=== PATIENT | male | born 1950 | race Caucasian/White ===

== ENCOUNTER 2018-01-06 15:46 | Observation (INO) ==
[2018-01-06 16:27] VITALS: BMI 31.9
--- NOTE | 2018-01-06 17:09 | History & Physical Report ---
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 morris , Dr. Garcia being treated with shiv daigle status post completion of 2 cycles of therapy of scheduled for cycles presented to oncology clinic today with complaints of 6 day history of intractable diarrhea. With concern for intractable diarrhea, not responding to treatment, hospitalist service was contacted by Nilam Arias nurse practitioner with oncology group and patient accepted for observation to medical floor. Patient examined at bedside on medical floor following direct admission. Reports feeling fatigued with loose, watery, brownish stools. No reported subjective fever, no chills, no increased sweating, no nausea, no vomiting, no chest pain, no palpitations, no blurred vision, no shortness of breath. Patient does report feeling tired with the diarrhea. Patient has been taking Imodium medication at home without significant benefit. Patient reports 6 episodes of watery stools noted through the course of today. No reported history of similar complaints in the past. Chemotherapy has been placed on hold at this moment until symptoms improve. Patient reports he also received 1 dose of prednisone medication one week ago provided by oncology. From previous lymph node dissection procedure, patient has chronic swelling in lower extremities. Review of Systems - Constitutional Constitutional: Present: fatigue, weakness - EENMT Eyes: Present: as per HPI Ears: Present: as per HPI Balance: Present: as per HPI Nose: Present: as per HPI Mouth/Throat: Present: as per HPI - Cardiovascular Cardiovascular: Absent: chest pain, palpitations Vascular: Present: pedal edema - Respiratory Respiratory: Absent: cough, dyspnea, wheezing - Gastrointestinal Gastrointestinal: Present: change in bowel habits, change in stool character, diarrhea. Absent: abdominal pain, constipation, hematochezia, melena, vomiting - Genitourinary Genitourinary: Absent: penile discharge, scrotal swelling - Musculoskeletal Musculoskeletal: Absent: arthralgias, limited range of motion, neck pain - Integumentary/Breasts Integumentary: Absent: non-healing lesions, pruritus - Neurological Neurological: Absent: abnormal gait, abnormal movements, abnormal speech - Psychiatric Psychiatric: Absent: depression, panic attacks - Endocrine Endocrine: Absent: palpitations, polyuria - Hematologic/Lymphatic Hematologic/Lymphatic: Present: as per HPI - Allergic/Immunologic Allergic/Immunologic: Present: as per HPI Past Medical History Medical History: Medical History (Last Updated 11/11/17 @ 13:48 by Harmeet Guzman MD) 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 Does not follow with a hvac technician. 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 Surgical History: * Bilateral knee replacement 02/2016 and 03/[address] Edwin Gilmore in [place], [place]. * Excision of basal cell carcinoma from back - 2010. * Colonoscopy - ~2009 in [place], [place]. Reported normal. * Lymph node excision bilateral groin area - 1989 in [place], [place]. * Excision of melanoma from back - 1988 Family History: Family History (Last Updated 11/11/17 @ 13:09 by Ja Maier) Mother , 93 Cancer of breast High blood pressure Father , 78 Heart attack High cholesterol Brother , 69 Cancer of colon Brother , 45 Cancer of lung Sister Lymphoma High blood pressure Family History: As Above - Social History Smoking status: Never smoker Substance use type: does not use Alcohol intake: never Alcohol intake frequency: does not drink Medications Home Medications Medication Instructions Recorded Confirmed Type Ativan (lorazepam) 0.5 mg tablet 0.5 mg PO Q4H PRN tab 11/10/17 01/06/18 History Flomax (tamsulosin) 0.4 mg capsule 0.4 mg PO HS 11/10/17 01/06/18 History Lipitor (atorvastatin) 40 mg tablet 40 mg PO HS 11/10/17 01/06/18 History Norvasc (amlodipine) 5 mg tablet 5 mg PO HS 11/10/17 01/06/18 History Prilosec (Omeprazole) 20 mg 20 mg PO HS 11/10/17 01/06/18 History capsule,delayed release Proscar (finasteride) 5 mg tablet 5 mg PO HS 11/10/17 01/06/18 History oxymetazoline 0.05 % nasal spray 2 spray INTRANASAL BID PRN 11/10/17 01/06/18 History aspirin 81 mg tablet,delayed 81 mg PO HS 11/11/17 01/06/18 History release Acyclovir 1 tab PO DAILY 01/06/18 01/06/18 History Fluticasone HFA [Flovent Hfa 44 1 puff AEROSOL DAILY 01/06/18 01/06/18 History mcg] Loperamide [Imodium] 2 mg PO BID 01/06/18 01/06/18 History Nystatin Oral Liq. [Mycostatin] 5 ml PO TID 01/06/18 01/06/18 History guaiFENesin [Mucinex] 1,200 mg PO Q12H 01/06/18 01/06/18 History predniSONE [Prednisone] 60 mg PO DAILY 01/06/18 01/06/18 History Allergies Allergy/AdvReac Type Severity Reaction Status Date / Time No Known Allergies Allergy Verified 11/16/17 07:10 Exam Vital Signs: Pulse Rate 82 01/06/18 16:46 Blood Pressure 140/66 H 01/06/18 16:46 Pulse Oximetry 97 01/06/18 16:46 Height/Weight/BMI: Height 1.73 m Weight 95.3 kg Body Mass Index 31.9 - Additional findings Additional findings: General: Alert, awake, oriented 3. Not in acute distress. Head: Pupils equal, round, reactive to light and accommodation. Extraocular movements intact. Neck: No elevation in JVP. No pharyngeal erythema noted. Chest: The patient does not use accessory muscles for breathing. Lungs: Breath sounds audible on auscultation bilateral lung meyer. No wheezing , no rhonchi, no crepitations, no crackles. No pleural rub. CVS: S1, S2 heard on auscultation. Normal rate and rhythm. No murmur, no S3/S4 gallops. Abdomen: Soft, nontender, no distention. Bowel sounds appreciated on auscultation. : No flank tenderness, no suprapubic distention or tenderness. Skin: No rashes, no induration, no erythema. Capillary refill less than 4 seconds. Extremities: Trace pedal edema bilateral lower extremities. No calf tenderness bilaterally. Palpable dorsalis pedis and posterior tibial pulses bilateral lower extremities. HIDE BUFFER: Strength 5/5 bilateral upper and lower extremities. Sensations intact. No slurred speech, no facial droop. No discernible focal neurological deficits. Results - Labs CBC & Chem 7: 01/06/18 17:46 01/06/18 17:46 Assessment and Plan Assessment and Plan: Assessment: Intractable Diarrhea Metastatic melanoma, currently on immunotherapy with shiv daigle status post 2 completed cycles of 4 total scheduled. Hypertension Hyperlipidemia History of coronary artery disease History of shingles with reactivation BPH GERD Anxiety Plan: IV fluids normal saline at 100 mL per hour. Stool studies performed on 01/04/2018, GI panel including C. difficile and occult blood were negative, will not be repeated at this point. Imodium 2 mg by mouth as needed for recurrent episodes of diarrhea, not to exceed 16 mg in 24 hours. CBC with differential, chem plus, lactic acid, urinalysis with culture if indicated, requested. Continue home medications Lipitor 40 mg by mouth at bedtime Continue Norvasc 5 mg by mouth daily Continue aspirin 81 mg by mouth daily Ativan 0.5 mg by mouth every 4 hours as needed for anxiety Continue home medication acyclovir Omeprazole 20 mg by mouth daily Continue finasteride 5 mg and Flomax 0.4 mg by mouth daily. DVT Prophylaxis: SCD's GI Prophylaxis: Omeprazole Resuscitation Status: Full Code - Time spent with patient Time with patient PN: 50 minutes - Physician Narrative Narrative: Date: 01/06/18 Time: 1701 Hospital Course Summary Disclaimer: The visit summary below is not to be considered part of the above Progress Note.
[2018-01-06] MEDS ORDERED: LORazepam 0.5 MG TABLET PO PRN (17:24)
[2018-01-06] MEDS ORDERED: LOPERAMIDE 2 MG CAPSULE PO PRN (17:29)
[2018-01-06] MEDS: NS 1,000 ML IV SCH (17:33)
[2018-01-06] MEDS: BUDESONIDE INH.SOLN 0.25mg/2ml NEB AEROSOL SCH (20:18)
[2018-01-06] MEDS: ACYCLOVIR 200 MG CAPSULE PO SCH (20:56)
[2018-01-06] MEDS ORDERED: ASPIRIN *EC* 81 MG TABLET PO SCH (21:00)
[2018-01-06] MEDS ORDERED: ATORVASTATIN 40 MG TABLET PO SCH (21:00)
[2018-01-06] MEDS ORDERED: OMEPRAZOLE 20 MG CAPSULE PO SCH (21:00)
[2018-01-06] MEDS ORDERED: FINASTERIDE 5 MG TABLET PO SCH (21:00)
[2018-01-06] MEDS ORDERED: TAMSULOSIN 0.4 MG CAPSULE PO SCH (21:00)
[2018-01-06] MEDS ORDERED: AMLODIPINE 5 MG TABLET PO SCH (21:00)
[2018-01-07] MEDS: NS 1,000 ML IV SCH ×2 (03:55→15:07)
[2018-01-07 07:27] VITALS: BP 149/67; PULSE 67; TEMP 97.5; O2SAT 99
[2018-01-07] MEDS: ACYCLOVIR 200 MG CAPSULE PO SCH (08:14)
[2018-01-07] MEDS ORDERED: ACYCLOVIR PO SCH (09:00)
[2018-01-07] MEDS: BUDESONIDE INH.SOLN 0.25mg/2ml NEB AEROSOL SCH (09:47)
[2018-01-07 09:52] VITALS: RESP 16
[2018-01-07] MEDS ORDERED: HEPARIN 5,000unit/ml 1ml INJECTION IV ONE (15:56)
--- NOTE | 2018-01-07 16:28 | Discharge Summary ---
Discharge Information Date of admission: 01/06/18 15:46 Anticipated date of discharge: 01/07/18 Attending Physician: Santiago Jara MD Primary care physician: Nikolas Lance MD Intractable Diarrhea, resolved Metastatic melanoma, currently on immunotherapy with opdivo, yervoy status post 2 completed cycles of 4 total scheduled. Hypertension Hyperlipidemia History of coronary artery disease History of shingles with reactivation BPH GERD Anxiety - Laboratory Labs: 01/07/18 04:16 01/07/18 04:15 Kelly showed trace protein, otherwise negative. - Microbiology GI panel performed on 01/04/2018, negative. 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 morris , Dr. Garcia being treated with shiv daigle status post completion of 2 cycles of therapy of scheduled for cycles presented to oncology clinic today with complaints of 6 day history of intractable diarrhea. With concern for intractable diarrhea, not responding to treatment, hospitalist service was contacted by Nilam Arias nurse practitioner with oncology group and patient accepted for observation to medical floor. Patient examined at bedside on medical floor following direct admission. Reports feeling fatigued with loose, watery, brownish stools. No reported subjective fever, no chills, no increased sweating, no nausea, no vomiting, no chest pain, no palpitations, no blurred vision, no shortness of breath. Patient does report feeling tired with the diarrhea. Patient has been taking Imodium medication at home without significant benefit. Patient reports 6 episodes of watery stools noted through the course of today. No reported history of similar complaints in the past. Chemotherapy has been placed on hold at this moment until symptoms improve. Patient reports he also received 1 dose of prednisone medication one week ago provided by oncology. From previous lymph node dissection procedure, patient has chronic swelling in lower extremities. Objective Vital signs: Temperature 97.5 F 01/07/18 07:27 Pulse Rate 67 01/07/18 07:27 Respiratory Rate 16 01/07/18 09:47 Blood Pressure 149/67 H 01/07/18 07:27 Pulse Oximetry 99 01/07/18 09:47 Height/Weight/BMI: Height 1.73 m Weight 95.2 kg Body Mass Index 31.9 - Additional findings Additional findings: General: Alert, awake, oriented 3. Not in acute distress. Head: Pupils equal, round, reactive to light and accommodation. Extraocular movements intact. Neck: No elevation in JVP. No pharyngeal erythema noted. Chest: The patient does not use accessory muscles for breathing. Lungs: Breath sounds audible on auscultation bilateral lung meyer. No wheezing , no rhonchi, no crepitations, no crackles. No pleural rub. CVS: S1, S2 heard on auscultation. Normal rate and rhythm. No murmur, no S3/S4 gallops. Abdomen: Soft, nontender, no distention. Bowel sounds appreciated on auscultation. : No flank tenderness, no suprapubic distention or tenderness. Extremities: No evidence of pedal edema bilateral lower extremities. No calf tenderness bilaterally. Palpable dorsalis pedis and posterior tibial pulses bilateral lower extremities. Hospital Course This is a general summary of the patient's hospital course. For more details refer to the complete medical record. Hospital course: 01/06/2018 IV fluids normal saline at 100 mL per hour. Stool studies performed on 01/04/2018, GI panel including C. difficile and occult blood were negative, will not be repeated at this point. Imodium 2 mg by mouth as needed for recurrent episodes of diarrhea, not to exceed 16 mg in 24 hours. CBC with differential, chem plus, lactic acid, urinalysis with culture if indicated, requested. Continue home medications Lipitor 40 mg by mouth at bedtime Continue Norvasc 5 mg by mouth daily Continue aspirin 81 mg by mouth daily Ativan 0.5 mg by mouth every 4 hours as needed for anxiety Continue home medication acyclovir Omeprazole 20 mg by mouth daily Continue finasteride 5 mg and Flomax 0.4 mg by mouth daily. 01/07/2018 Patient had soft, formed stools noted during hospital stay with one episode of loose watery stools noted on night of admission. Subjectively, patient states diarrhea resolved. Orthostatic Vital signs performed on admission within normal limits. Patient discharged home, advised to take Imodium medication, if needed, as prescribed by PCP/oncologist and not to exceed 16 mg in 24 hours. Resuscitation Status: Full Code Discharge Plan - Discharge Disposition Discharge Date: 01/07/18 Disposition: 01 Discharged Home, Self-Care *Condition: Stable Reason For Visit (Visit label in EMR): intractable diarrhea,fatigue - Discharge Medications *Discharge Medications: Continue predniSONE [Prednisone] 60 mg PO DAILY Nystatin Oral Liq. [Mycostatin] 5 ml PO TID guaiFENesin [Mucinex] 1,200 mg PO Q12H Loperamide [Imodium] 2 mg PO BID Fluticasone HFA [Flovent Hfa 44 mcg] 1 puff AEROSOL DAILY Acyclovir 1 tab PO DAILY Norvasc (amlodipine) 5 mg tablet 5 mg PO HS Ativan (lorazepam) 0.5 mg tablet 0.5 mg PO Q4H PRN tab PRN Reason: Anxiety Lipitor (atorvastatin) 40 mg tablet 40 mg PO HS Proscar (finasteride) 5 mg tablet 5 mg PO HS Prilosec (Omeprazole) 20 mg capsule,delayed release 20 mg PO HS Flomax (tamsulosin) 0.4 mg capsule 0.4 mg PO HS aspirin 81 mg tablet,delayed release 81 mg PO HS oxymetazoline 0.05 % nasal spray 2 spray INTRANASAL BID PRN PRN Reason: Prn Orders - Discharge Packet/Instructions *Diet: Low salt, low irritant diet. Patient advised to avoid greasy, fatty food. *Activity: As tolerated *Pain Management/Treatment: As prescribed by PCP *Wound Care: Not applicable *Expected Signs/Symptoms: Continued improvement *Notify Physician if: Recurrent diarrhea, symptoms of dizziness, blurred vision , fatigue, poor appetite, chest pain, palpitations, shortness of breath, fever greater than 101F, chills or any other concerning findings. *During Business Hours Contact: PCP or oncologist *After Business Hours Contact: Call [facility] at [phone] and ask that the on-call physician be paged *Pending Lab/Results: No Pending Lab - Referrals/Follow Up *Referrals/Follow Up: Nikolas Lance MD [Primary Care Provider] - Louie Garcia MD [Physician] - - Patient Handouts - Dismissal Complete Discharge Instructions are:: Complete Physician Narrative - Narrative Attestation Narrative: Date: 01/07/18 Time: 5838
[2018-01-08] MEDS ORDERED: IOHEXOL 300mg/ml 100ml INJECTION ONE (04:23)
== END 2018-01-07 17:00 | disposition home or self-care (01) ==
LOC: MED
PROVIDERS: ADMIT Internal Medicine; ATTEND Internal Medicine

== ENCOUNTER 2018-01-08 02:48 | Inpatient (IN) ==
[2018-01-08] MEDS ORDERED: PROCHLORPERAZINE 10 MG/2 ML INJECTION IVP ONE (02:58)
[2018-01-08] MEDS ORDERED: NS 1,000 ML IV ONE (02:59)
--- NOTE | 2018-01-08 03:06 | Emergency Department Report ---
Nausea/Vomiting/Diarrhea HPI - General Stated complaint: v/d, weakness (chemo pt) Time Seen by Provider: 01/08/18 02:51 Source: patient Mode of arrival: ambulatory Limitations: no limitations - History of Present Illness HPI Narrative: Patient presents tonight with recurrence of nausea vomiting and diarrhea as well as feelings of generalized weakness. 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 Patient sees Dr. Dey and Dr. Garcia, and in December 09 was treated with his chemotherapy of opdivo and yervoy. Patient began having diarrhea 7 days ago, was admitted to the hospital for hydration on 01/06, and was dismissed yesterday evening 01/07, in much improved condition. Within a few hours after returning home, the patient's symptoms began again, he has been unable to control his symptoms at home even using Imodium. Patient has no medications for nausea at home. On 01/04 patient had stool PCR that was completely negative - Related Data Home Medications Medication Instructions Recorded Confirmed Ativan (lorazepam) 0.5 mg tablet 0.5 mg PO Q4H PRN tab 11/10/17 01/08/18 Flomax (tamsulosin) 0.4 mg capsule 0.4 mg PO HS 11/10/17 01/08/18 Lipitor (atorvastatin) 40 mg tablet 40 mg PO HS 11/10/17 01/08/18 Norvasc (amlodipine) 5 mg tablet 5 mg PO HS 11/10/17 01/08/18 Prilosec (Omeprazole) 20 mg 20 mg PO HS 11/10/17 01/08/18 capsule,delayed release Proscar (finasteride) 5 mg tablet 5 mg PO HS 11/10/17 01/08/18 oxymetazoline 0.05 % nasal spray 2 spray INTRANASAL BID PRN 11/10/17 01/08/18 aspirin 81 mg tablet,delayed 81 mg PO HS 11/11/17 01/08/18 release Acyclovir 1 tab PO DAILY 01/06/18 01/08/18 Fluticasone HFA [Flovent Hfa 44 1 puff AEROSOL DAILY 01/06/18 01/08/18 mcg] Loperamide [Imodium] 2 mg PO BID 01/06/18 01/08/18 Nystatin Oral Liq. [Mycostatin] 5 ml PO TID 01/06/18 01/08/18 guaiFENesin [Mucinex] 1,200 mg PO Q12H 01/06/18 01/08/18 predniSONE [Prednisone] 60 mg PO DAILY 01/06/18 01/08/18 Allergies Allergy/AdvReac Type Severity Reaction Status Date / Time No Known Allergies Allergy Verified 01/08/18 03:04 Review of Systems All systems: reviewed and negative except as stated PFSH Patient Stated Medical History Hypertension Yes Myocardial Infarction Yes: 2006, no stents, no chest pain, mild MN medical magnagment Sleep Apnea No Gastroesophageal Reflux Yes Disease Hx Benign Prostatic Yes Hyperplasia Hx Kidney Stones Yes: HX Shingles Yes: 2016 Anesthesia Reactions Yes: [facility] Medical History (Last Updated 11/11/17 @ 13:48 by Harmeet Guzman MD) 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 Does not follow with a eligibility clerk. 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 Surgical History: * Bilateral knee replacement 02/2016 and 03/[address] Edwin Gilmore in [place], [place]. * Excision of basal cell carcinoma from back - 2010. * Colonoscopy - ~2009 in [place], [place]. Reported normal. * Lymph node excision bilateral groin area - 1989 in [place], [place]. * Excision of melanoma from back - 1988 Family History: Family History (Last Updated 11/11/17 @ 13:09 by Ja Maier) Mother , 93 Cancer of breast High blood pressure Father , 78 Heart attack High cholesterol Brother , 69 Cancer of colon Brother , 45 Cancer of lung Sister Lymphoma High blood pressure - Social History Smoking status: Never smoker Substance use type: does not use Alcohol intake: never Alcohol intake frequency: does not drink Household members: none Current occupational status: retired Physical Exam - Limitations Limitations: no limitations - General General appearance: alert, other (patient appears weak, but ambulates without difficulty) - Normal Exams: Head:: Normocephalic without trauma Eyes:: Pupils are PERRLA w/ EOMI, No scleral icterus, irritation, or foreign bodies noted ENMT:: No facial trauma, nasal exudates, pharyngeal erythema, or exudates are noted Neck:: Full range of motion, without adenopathy, JVD, bruits or thyromegaly Chest/Respirations:: Clear all meyer, with good airflow, and symmetry bilaterally Cardiovascular:: Regular rate and rhythm, without murmur or gallop, Pulses 2+ all extremities, capillary refill, <2 seconds all extremities Lymphatic:: No lymphadenopathy, or lymphedema noted Musculoskeletal:: No tenderness, or deformity noted, good range of motion, all extremities Integumentary:: No rashes, hives, or bruising noted, hair and nails, without abnormality Neurological:: Patient is alert, and oriented, cranial nerves, motor/sensory/ cerebellar, exams w/o gross deficits, to observation Psychiatric:: Patient exhibits, appropriate attention, emotion and affect - Abdominal Exam Abdominal exam: Present: soft, diminished bowel sounds (significantly diminished bowel sounds in the lower segments, upper segments have normal to increased bowel sounds). Absent: distention, tenderness, guarding, rebound, rigidity Course Vital Signs Temperature 98.1 F 01/08/18 02:50 Pulse Rate 100 01/08/18 02:50 Respiratory Rate 16 01/08/18 02:50 Blood Pressure 123/66 01/08/18 02:50 Pulse Oximetry 99 01/08/18 02:50 Temperature 98.1 F 01/08/18 02:50 Pulse Rate 86 01/08/18 04:48 Respiratory Rate 16 01/08/18 05:27 Blood Pressure 132/66 01/08/18 04:48 Pulse Oximetry 98 01/08/18 04:48 Nausea/Vomiting/Diarrhea - [facility] Narrative Medical decision making narrative: Patient given Compazine 10 mg and 1 L normal saline IV fluid bolus CBC - essentially unchanged CMP/L - minimal electrolyte abnormalities consistent with mild dehydration. Creatinine 1.0 Abdominal films show multiple air-fluid levels with visible small bowel loops, questionable dilation. CT abdomen is ordered, patient is given Ativan 1 mg IV for severe claustrophobic anxiety CT A/P - initial ER George support small bowel obstruction, no obvious large masses or free fluid. Awaiting official radiology read Case is discussed with Dr. Isidoro Gong, we'll admit inpatient to medical, for continued medication and fluids and follow-up CT scan when it's finally read - Lab Data Result diagrams: 01/08/18 03:19 01/08/18 03:19 Lab Results 01/08/18 01/08/18 Range/Units 03:19 03:19 WBC 11.2 H (4.5-11.0) T/MM3 RBC 4.99 (4.50-5.90) M/MM3 Hgb 14.4 D (13.5-17.5) GM/DL Hct 41.8 D (41-53) % MCV 83.8 (80-100) UM3 MCH 28.9 (26-34) UUG MCHC 34.4 (31-37) GM/DL RDW Std Deviation 44.0 (36.9-50.2) FL Plt Count 263 (130-400) T/MM3 MPV 8.8 L (9.4-12.4) UM3 Immature Gran % (Auto) 0.8 H (0.0-0.5) % Neut % (Auto) 76.3 H (33-66) % Lymph % (Auto) 10.9 L (23-45) % [place] % (Auto) 10.6 H (0-9.0) % Eos % (Auto) 1.3 (0-4) % Baso % (Auto) 0.1 (0-2) % Neut # (Auto) 8.6 H (1.8-7.7) T/MM3 Lymph # (Auto) 1.2 (1-4.8) T/MM3 [place] # (Auto) 1.2 H (0-0.8) T/MM3 Eos # (Auto) 0.2 (0-0.5) T/MM3 Baso # (Auto) 0.0 (0-0.2) T/MM3 Abs Immat Gran (auto) 0.09 H (0.00-0.03) T/MM3 Turbidity < 20 (0-20) Sodium 142 (136-146) MEQ/L Potassium 3.4 L (3.6-5) MEQ/L Chloride 109 H (98-107) MEQ/L Carbon Dioxide 21 L (22-30) MEQ/L Anion Gap 12 (5-15) meq/L BUN 26.0 H (9-20) MG/DL Creatinine 1.0 (0.8-1.5) mg/dL GFR Calculation 74 BUN/Creatinine Ratio 26 (6-26) RATIO Glucose 102 (75-110) MG/DL Calculated Osmolality 278 (261-280) MOSM/KG Calcium 9.3 (8.4-10.2) MG/DL Total Bilirubin 0.80 (0.20-1.30) MG/DL Conjugated Bilirubin 0.00 (0.00-0.30) mg/dL Unconjugated Bilirubin 0.90 (0.00-1.1) mg/dL Icterus Index < 2 (0-7) AST 20 (17-59) U/L ALT 16 (1-50) U/L Alkaline Phosphatase 89 (38-126) U/L Total Protein 6.9 (6.3-8.2) g/dL Albumin 3.9 (3.5-5.0) g/dL Globulin 3.0 (2.4-3.6) G/DL Albumin/Globulin Ratio 1.3 (1.1-2.2) RATIO Lipase 303 H (23-300) U/L Specimen Hemolysis < 15 (0-25) Disposition Clinical Impression: Small bowel obstruction Disposition: 02 To [facility] [place] Acute Care Condition: Improved Prescriptions: No Action predniSONE [Prednisone] 60 mg PO DAILY Nystatin Oral Liq. [Mycostatin] 5 ml PO TID guaiFENesin [Mucinex] 1,200 mg PO Q12H Loperamide [Imodium] 2 mg PO BID Fluticasone HFA [Flovent Hfa 44 mcg] 1 puff AEROSOL DAILY Acyclovir 1 tab PO DAILY Norvasc (amlodipine) 5 mg tablet 5 mg PO HS Ativan (lorazepam) 0.5 mg tablet 0.5 mg PO Q4H PRN tab PRN Reason: Anxiety Lipitor (atorvastatin) 40 mg tablet 40 mg PO HS Proscar (finasteride) 5 mg tablet 5 mg PO HS Prilosec (Omeprazole) 20 mg capsule,delayed release 20 mg PO HS Flomax (tamsulosin) 0.4 mg capsule 0.4 mg PO HS aspirin 81 mg tablet,delayed release 81 mg PO HS oxymetazoline 0.05 % nasal spray 2 spray INTRANASAL BID PRN PRN Reason: Prn Orders Referrals: Nikolas Lance MD [Primary Care Provider] - - Seen By: physician
[2018-01-08] MEDS: SALINE FLUSH 10ml SYRINGE IVF PRN ×2 (03:10→11:36)
[2018-01-08] MEDS ORDERED: ONDANSETRON 4 MG/2 ML INJECTION IVP PRN (05:45)
[2018-01-08] MEDS ORDERED: MORPHINE SULFATE 2mg INJECTION IVP PRN (05:45)
[2018-01-08] MEDS: NS with KCL 20 mEq 1,000 ML IV SCH ×2 (06:11→15:30)
--- NOTE | 2018-01-08 06:11 | History & Physical Report ---
History of Present Illness Date: 01/08/18 Chief complaint: abdomen pain, diarrhea, vomiting HPI: This is a 67 y/o male who is currently being treated for metastatic recurrent melanoma. The patient was recently hospitalized for nausea/vomiting/diarrhea. He was discharged yesterday afternoon. Around 7pm the patient had recurrence of his n/v/d. He presented back to the ED and ultimately had a CT of his abdomen / pelvis. Initial opinion by ED provider was that there was no transition zone. Note that the acute abdomen series prior to the CT suggested small bowel obstruction. AT this time the patient is to be admitted for management of his ongoing gi illness. I refer those reading this H and P to the recent H and P from 01/06. and the discharge summary 01/07. Review of Systems Review of systems: no headache, no fever, chills or sweats, no sore throat, no neck pain, no chest pain, occasional cough, nausea/vomiting several times today with out blood present. Mild short of breath. mild abdomen pain wiht several diarrheal stools today. No focal motor weakness. 10 point ROS otherwise negative except fo outlined above. Past Medical History Medical History: Medical History (Last Updated 11/11/17 @ 13:48 by Harmeet Guzman MD) Metastasis to lymph nodes (Chronic) Lymphedema (Chronic) GERD (gastroesophageal reflux disease) (Chronic) High cholesterol (Chronic) HTN (hypertension) (Chronic) Heart attack (Resolved) Onset Date: ~2006 Patient reports NH was unexplained and investigation revealed no significant blockage. Does not follow with a computer technologist. 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 Surgical History: * Bilateral knee replacement 02/2016 and 03/[address] Edwin Gilmore in [place], [place]. * Excision of basal cell carcinoma from back - 2010. * Colonoscopy - ~2009 in [place], [place]. Reported normal. * Lymph node excision bilateral groin area - 1989 in [place], [place]. * Excision of melanoma from back - 1988 Family History: Family History (Last Updated 11/11/17 @ 13:09 by Ja Maier) Mother , 93 Cancer of breast High blood pressure Father , 78 Heart attack High cholesterol Brother , 69 Cancer of colon Brother , 45 Cancer of lung Sister Lymphoma High blood pressure Family History: As Above - Social History Smoking status: Never smoker Medications Home Medications Medication Instructions Recorded Confirmed Type Ativan (lorazepam) 0.5 mg tablet 0.5 mg PO Q4H PRN tab 11/10/17 01/08/18 History Flomax (tamsulosin) 0.4 mg capsule 0.4 mg PO HS 11/10/17 01/08/18 History Lipitor (atorvastatin) 40 mg tablet 40 mg PO HS 11/10/17 01/08/18 History Norvasc (amlodipine) 5 mg tablet 5 mg PO HS 11/10/17 01/08/18 History Prilosec (Omeprazole) 20 mg 20 mg PO HS 11/10/17 01/08/18 History capsule,delayed release Proscar (finasteride) 5 mg tablet 5 mg PO HS 11/10/17 01/08/18 History oxymetazoline 0.05 % nasal spray 2 spray INTRANASAL BID PRN 11/10/17 01/08/18 History aspirin 81 mg tablet,delayed 81 mg PO HS 11/11/17 01/08/18 History release Acyclovir 1 tab PO DAILY 01/06/18 01/08/18 History Fluticasone HFA [Flovent Hfa 44 1 puff AEROSOL DAILY 01/06/18 01/08/18 History mcg] Loperamide [Imodium] 2 mg PO BID 01/06/18 01/08/18 History Nystatin Oral Liq. [Mycostatin] 5 ml PO TID 01/06/18 01/08/18 History guaiFENesin [Mucinex] 1,200 mg PO Q12H 01/06/18 01/08/18 History predniSONE [Prednisone] 60 mg PO DAILY 01/06/18 01/08/18 History Allergies Allergy/AdvReac Type Severity Reaction Status Date / Time No Known Allergies Allergy Verified 01/08/18 03:04 Exam Vital Signs: Temperature 97.9 F 01/08/18 05:47 Pulse Rate 98 01/08/18 05:55 Respiratory Rate 18 01/08/18 05:55 Blood Pressure 122/65 01/08/18 05:47 Pulse Oximetry 96 01/08/18 05:55 Telemetry Rhythm: Sinus Rhythm Height/Weight/BMI: Height 1.73 m Weight 95.4 kg Body Mass Index 31.9 - Constitutional Present: mild distress, average body habitus, cooperative - Routine HEENT Exam Head: Present: normocephalic, atraumatic Eye: Present: EOMI, conjunctivae pink. Absent: conjunctival icterus ENT: Present: mucous membranes dry - Routine Neck Exam Present: supple, full ROM - Routine Respiratory Exam Present: CTA bilaterally - Routine Cardiovascular Exam Present: RRR, no murmur (mild obese, upper quadrants can appreciate bowel souns. mild tender to palpation, non surgical. ) - Routine Extremities Exam Present: edema - Routine Back/Spine/Pelvis Exam Back/Spine: Present: full ROM - Routine Skin Exam Present: intact, dry - Routine Neurological Exam Present: alert, normal reflexes, moving all extremities, normal tone, vision grossly intact, hearing grossly intact, normal speech. Absent: altered mental status - Routine Psychiatric Exam Present: normal thought process Results - Labs CBC & Chem 7: 01/08/18 03:19 01/08/18 03:19 Labs: reviewed and will be discussed below AAS with air fluid levels, concerning or sbo CT abdomen and pelvis with offical report pending but no obvious transition zone Assessment and Plan Assessment and Plan: 1. ileus acute POA: official CT results pending . AAS suggest possible SBO. NPO, ice chips, iv pain meds prn. await official result. obviously there is risk of mechanical obstruction. surgical cx not indicated yet 2. metastatic melanoma acute POA: per oncology, ongoing therapy. 3. HTN chronic POA: NPO currently, monitro blood pressure, prn antihypertensive meds as indiated. IV 4. Slightly elevated lipase acute POA: consider pancreatitis. Possible side effect of chemo. repeat lipse in the am. npo for now. 5. lyphedema chronic POA: 2/2 to lymph node ressection. 6. DVT ppx: SCD, lovenox DVT Prophylaxis: SCD's, Lovenox GI Prophylaxis: Protonix Resuscitation Status: Full Code - Time spent with patient Time with patient PN: 30 minutes - Physician Narrative Physician: Santiago Jara Narrative: Date: 01/08/18 Time: 605 Dr. Gong's note reviewed. Mr. Billingsley interviewed and examined at bedside. CC: Abdominal pain, intractable nausea, vomiting. HPI: A pleasant 67-year-old male patient with history of metastatic melanoma recently observed in the hospital for intractable diarrhea, GI panel and stool occult blood were negative on 01/04/2018, patient treated with Imodium medication. Returned to emergency room with abdominal pain, nausea, vomiting. Acute abdominal series performed in the emergency room concerning for obstruction. Thereafter, CT scan of abdomen and pelvis performed, on reviewing films I did not appreciate a transition point however official report awaited. At the time of examination at bedside, patient had 1 episode of loose watery stools and subjectively, reports abdominal pain and nausea has improved. PH/SH/FH: agree with that recorded above ROS: 10 point review EXAM: General: Alert, awake, oriented x 3. Not in acute distress. Head: Pupils equal, round, reactive to light and accommodation. Extraocular movements intact. Neck: No elevation in JVP. No pharyngeal erythema noted. Chest: Right-sided chest wall port in place. The patient does not use accessory muscles for breathing. Lungs: Breath sounds audible on auscultation bilateral lung meyer. No wheezing , no rhonchi, no crepitations, no crackles. No pleural rub. CVS: S1, S2 heard on auscultation. Normal rate and rhythm. No murmur, no S3/S4 gallops. Abdomen: Soft, positive distention, nontender to palpation. Bowel sounds appreciated on auscultation. : No flank tenderness, no suprapubic distention or tenderness. Skin: No rashes, no induration, no erythema. Capillary refill less than 4 seconds. Extremities: 1+ pedal edema bilateral lower extremities. No calf tenderness bilaterally. Palpable dorsalis pedis and posterior tibial pulses bilateral lower extremities. DATA: WBC count 11.2, serum potassium 3.4, BU and 26, serum creatinine 1.0. Awaiting report of CT scan of abdomen and pelvis. A/P: Patient admitted with clinical picture suggestive of ileus, likely secondary to Imodium medication which patient has been on for the past few days. Imodium medication will be held. Official CT report awaited and in the meantime patient will be remain nothing by mouth except for ice chips. If needed , Gen. surgery will be consulted. Hospital Course Summary Disclaimer: The visit summary below is not to be considered part of the above Progress Note.
[2018-01-08] MEDS: ENOXAPARIN 40 MG/0.4 ML INJECTION SQ SCH (09:36)
--- NOTE | 2018-01-08 10:03 | CT Scan Report ---
Indication: SBO with metastatic melanoma PROCEDURE: CT abdomen pelvis w con: Encounter: Initial Comparison: None Technique: Axial CT images were performed through the abdomen and pelvis after the administration of intravenous contrast. Coronal and sagittal two-dimensional reformats. Automated Exposure Control and Iterative Reconstruction dose reducing techniques were utilized. Contrast: Omnipaque 300 94 mL Findings: The lung bases show a 1.2 cm nodule in the lingula and a subpleural 1.3 cm nodule in the left lower lobe. There is also a mildly irregular cervical subcentimeter nodule in the right lower lobe. The liver appears normal. The gallbladder is normal. The spleen shows a tiny low-attenuation focus, too small to characterize. There is inflammatory stranding surrounding the pancreatic head and second and third portions of the duodenum with enlarged peripancreatic and mesenteric nodes. The adrenal glands are normal. Right renal cyst. Kidneys are otherwise normal. Central mesenteric edema with trace fluid. Bladder is normal. No evidence of a bowel obstruction. Fluid throughout the small and large bowel. The appendix is normal. No abnormally dilated small bowel appreciated. No evidence of bowel obstruction. Bone windows show osseous metastases, better seen on the prior pelvic MRI. These are predominantly lytic. No acute pathologic fracture appreciated. Significant soft tissue induration overlying the base of the anus and infrapubic soft tissues. Impression: 1. Inflammation around the pancreas and proximal duodenum suggesting duodenitis or pancreatitis. Ulcer disease cannot be excluded. No evidence of perforation. 2. No evidence of small bowel obstruction. 3. Metastatic disease with pulmonary and osseous metastases. 4. Probable gastroenteritis 5. Pubic area soft tissue induration possibly representing cellulitis. There is a preliminary report by [employer]. .
--- NOTE | 2018-01-08 10:04 | XRay Report ---
Indication: vomiting, diarrhea, diminished bowel sounds PROCEDURE: PA view of the chest with supine and upright AP views of the abdomen Encounter: Initial Comparison: CT abdomen and pelvis from the same date FINDINGS: The lungs are clear. There is no abnormal airspace opacity, pleural effusion or pneumothorax identified. The heart size, pulmonary vasculature and mediastinum are within normal limits. There is no free air on the upright view. The bowel gas pattern is nonobstructive with scattered small bowel air-fluid levels. No abnormally dilated small or large bowel appreciated. Lytic osseous metastatic disease is noted in the pelvis, particularly the left iliac crest. IMPRESSION: 1. No acute cardiopulmonary abnormality. 2. Probable gastroenteritis. .
[2018-01-08] MEDS: PANTOPRAZOLE 40 MG INJECTION IVP SCH (11:36)
[2018-01-08] MEDS ORDERED: PredniSONE 20 MG TABLET PO SCH (17:45)
[2018-01-09] MEDS: NS with KCL 20 mEq 1,000 ML IV SCH ×3 (02:01→22:27)
[2018-01-09] MEDS ORDERED: PANTOPRAZOLE 40 MG INJECTION IVP SCH (07:30)
[2018-01-09] MEDS: PredniSONE 20 MG TABLET PO SCH (09:15)
[2018-01-09] MEDS: PANTOPRAZOLE 40 MG INJECTION IVP SCH (09:15)
[2018-01-09] MEDS: ENOXAPARIN 40 MG/0.4 ML INJECTION SQ SCH (09:16)
--- NOTE | 2018-01-09 10:39 | Consult Note ---
<Nilam Arias - Last Filed: 01/09/18 15:58> Oncology HPI - Data of Consult Patient: known to practice within the last 3 years Consult date: 01/09/18 Requesting Physician: Santiago Jara MD Primary Care Provider: Nikolas Lance MD - Consult Narrative Reason for consult: metastatic melanoma History of present illness: 67-year-old male patient of Dr. Dey with metastatic melanoma with recent progressive disease with extensive metastasis is currently receiving immunotherapy with OpDivo/Yervoy, last received on 12/09/17. 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 Per patient, initially started with 5-6 liquid stools each day. Seen in [facility] by Dr. Dey; received SoluMedrol 120mg on 01/05/18, then started prednisone 60 mg daily, took first dose January 06. Initially, reports less diarrhea for one day, then diarrhea recurred, came to the office TuesdayJanuary 07 with persistent diarrhea, fatigue, nausea and mild abdominal pain, unrelieved with BRATY diet/clear liquids and use of Imodium. Patient was a direct admit to [facility] Tuesday afternoon; symptoms improved with hydration; states no further diarrhea Tuesday; went home late afternoon. States late Tuesday evening, 11:30 PM awoke; had single episode of large liquid stool and vomited 1 time. Went back to bed; vomiting and diarrhea occurred again a couple hours later and he returned to [facility]; admitted for supportive care, further workup and close monitoring. At time of intake, alone in room, sitting in chair. Has been tolerating clear liquids well. States today had 6-7 watery stools; states " I feel the time frame is lengthening between episodes of the diarrhea." Denies further nausea, vomiting, or abdominal pain. Denies headaches, no fever or chills, no new aches or pains. History of Present Illness: 1988; Melanoma removed from back. Underwent bilateral inguinal lymph node dissection followed by adjuvant radiation therapy and interferon therapy in the clinical trial at the [facility] 10/19/2017; right calf shave biopsy showed basal cell carcinoma 10/25/2017; right axillary lymph node biopsy; metastatic malignant melanoma 11/18/2017: cycle 1 OpDivo 108 mg/Yervoy 323 mg Review of Systems - Constitutional Constitutional: Present: anorexia, fatigue, weight loss - EENT Mouth/Throat: Present: sores - Cardiovascular Cardiovascular: Absent: chest pain, dyspnea on exertion - Respiratory Respiratory: Absent: cough, dyspnea on exertion - Gastrointestinal Gastrointestinal: Present: abdominal pain, diarrhea, nausea, vomiting - Genitourinary Genitourinary: Absent: dysuria, hematuria - Musculoskeletal Musculoskeletal: Present: muscle weakness - Integumentary/Breasts Integumentary: Present: rash (shingles rash Left upper abdomen/states unchanged) - Neurological Neurological: Present: other (lightheaded at times). 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 Does not follow with a judge clerk. 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 Surgical History: * Bilateral knee replacement 02/2016 and 03/[address] Edwin Gilmore in [place], [place]. * Excision of basal cell carcinoma from back - 2010. * Colonoscopy - ~2009 in [place], [place]. Reported normal. * Lymph node excision bilateral groin area - 1989 in [place], [place]. * Excision of melanoma from back - 1988 Family History: Family History (Last Updated 11/11/17 @ 13:09 by Ja Maier) Mother , 93 Cancer of breast High blood pressure Father , 78 Heart attack High cholesterol Brother , 69 Cancer of colon Brother , 45 Cancer of lung Sister Lymphoma High blood pressure - Social History Smoking status: Never smoker Substance use type: does not use Alcohol intake: never Alcohol intake frequency: does not drink Household members: none Current occupational status: retired Medications Home Medications Medication Instructions Recorded Confirmed Type Ativan (lorazepam) 0.5 mg tablet 0.5 mg PO Q4H PRN tab 11/10/17 01/08/18 History Flomax (tamsulosin) 0.4 mg capsule 0.4 mg PO HS 11/10/17 01/08/18 History Lipitor (atorvastatin) 40 mg tablet 40 mg PO HS 11/10/17 01/08/18 History Norvasc (amlodipine) 5 mg tablet 5 mg PO HS 11/10/17 01/08/18 History Prilosec (Omeprazole) 20 mg 20 mg PO HS 11/10/17 01/08/18 History capsule,delayed release Proscar (finasteride) 5 mg tablet 5 mg PO HS 11/10/17 01/08/18 History oxymetazoline 0.05 % nasal spray 2 spray INTRANASAL BID PRN 11/10/17 01/08/18 History aspirin 81 mg tablet,delayed 81 mg PO HS 11/11/17 01/08/18 History release Acyclovir 1 tab PO DAILY 01/06/18 01/08/18 History Fluticasone HFA [Flovent Hfa 44 1 puff AEROSOL DAILY 01/06/18 01/08/18 History mcg] Loperamide [Imodium] 2 mg PO BID 01/06/18 01/08/18 History Nystatin Oral Liq. [Mycostatin] 5 ml PO TID 01/06/18 01/08/18 History guaiFENesin [Mucinex] 1,200 mg PO Q12H 01/06/18 01/08/18 History predniSONE [Prednisone] 60 mg PO DAILY 01/06/18 01/08/18 History Allergies Allergy/AdvReac Type Severity Reaction Status Date / Time No Known Allergies Allergy Verified 01/08/18 03:04 Exam Vital signs: Temperature 96.1 F L 01/09/18 07:58 Pulse Rate 75 01/09/18 07:58 Respiratory Rate 14 01/09/18 03:36 Blood Pressure 129/61 01/09/18 07:58 Pulse Oximetry 96 01/09/18 07:58 - Constitutional no acute distress, well nourished, well developed, cooperative - Routine HEENT Exam Head: Present: normocephalic Eye: Present: EOMI ENT: Present: mucous membranes moist - Routine Neck Exam Present: supple - Routine Respiratory Exam Present: decreased breath sounds. Absent: wheezes, crackles - Routine Cardiovascular Exam Present: RRR - Routine Abdominal Exam Present: soft, normoactive bowel sounds, non distended, non tender - Routine Extremities Exam Present: no edema, full ROM - Routine Skin Exam Present: intact, dry, pallor. Absent: rash - Routine Neurological Exam Present: alert, oriented X3, moving all extremities - Routine Psychiatric Exam Present: normal affect, normal thought process, cooperative Oncology Results - Labs CBC & Chem 7: 01/09/18 04:17 01/09/18 04:17 Labs: Short CBC 01/09/18 Range/Units 04:17 WBC 4.6 D (4.5-11.0) T/MM3 Hgb 12.1 L D (13.5-17.5) GM/DL Hct 35.4 L D (41-53) % Plt Count 198 (130-400) T/MM3 BMP 01/09/18 04:17 Sodium 141 Potassium 3.8 Chloride 112 H Carbon Dioxide 20 L BUN 18.0 Creatinine 0.9 Glucose 120 H Calcium 8.4 D - Impressions Date of Exam: 01/08/18 Ordering Provider: Manoj Kemp MD Type of Exam(s): XR acute abdomen series Reason for Exam(s): vomiting, diarrhea, diminished bowel sounds Indication: vomiting, diarrhea, diminished bowel sounds PROCEDURE: PA view of the chest with supine and upright AP views of the abdomen Encounter: Initial Comparison: CT abdomen and pelvis from the same date FINDINGS: The lungs are clear. There is no abnormal airspace opacity, pleural effusion or pneumothorax identified. The heart size, pulmonary vasculature and mediastinum are within normal limits. There is no free air on the upright view. The bowel gas pattern is nonobstructive with scattered small bowel air-fluid levels. No abnormally dilated small or large bowel appreciated. Lytic osseous metastatic disease is noted in the pelvis, particularly the left iliac crest. IMPRESSION: 1. No acute cardiopulmonary abnormality. 2. Probable gastroenteritis. . Assessment and Plan Assessment and Plan: 1. Recurrent metastatic melanoma with extensive metastasis to musculoskeletal system, lungs, lymph nodes. Current treatment OpDivo/Yervoy, received cycle 2 on 12/09/17. Now with immunotherapy induced colitis. 2. Reactivation of shingles, left upper abdomen 3. Comorbidities of coronary artery disease, hypertension, hyperlipidemia, GERD Plan Continue with supportive care, prednisone 80 mg p.o. daily, and close follow- up. Dr. Jara has consultated surgeon for possible EGD. Has no questions at this time. 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 Does not follow with a judge clerk. 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 Family History: Family History (Last Updated 11/11/17 @ 13:09 by Ja Maier) Mother , 93 Cancer of breast High blood pressure Father , 78 Heart attack High cholesterol Brother , 69 Cancer of colon Brother , 45 Cancer of lung Sister Lymphoma High blood pressure Exam Vital signs: Temperature 97.3 F 01/09/18 16:00 Pulse Rate 68 01/09/18 16:00 Respiratory Rate 12 01/09/18 16:00 Blood Pressure 128/64 01/09/18 16:00 Pulse Oximetry 97 01/09/18 16:00 Oncology Results - Labs CBC & Chem 7: 01/09/18 04:17 01/09/18 04:17 Labs: Short CBC 01/09/18 Range/Units 04:17 WBC 4.6 D (4.5-11.0) T/MM3 Hgb 12.1 L D (13.5-17.5) GM/DL Hct 35.4 L D (41-53) % Plt Count 198 (130-400) T/MM3 BMP 01/09/18 04:17 Sodium 141 Potassium 3.8 Chloride 112 H Carbon Dioxide 20 L BUN 18.0 Creatinine 0.9 Glucose 120 H Calcium 8.4 D - Impressions CT abd and Pelvis Impression: 1. Inflammation around the pancreas and proximal duodenum suggesting duodenitis or pancreatitis. Ulcer disease cannot be excluded. No evidence of perforation. 2. No evidence of small bowel obstruction. 3. Metastatic disease with pulmonary and osseous metastases. 4. Probable gastroenteritis 5. Pubic area soft tissue induration possibly representing cellulitis. Assessment and Plan Assessment and Plan: Metastatic melanoma extensive currently on immunomodulation therapy with Opdivo Yervoy status post 2 cycles with diarrhea that can greater than one week ago worsened between Tuesday and Tuesday of last week he describes episodes that happen every 2 hours. He is currently on 80 mg prednisone daily. He feels that he is improving. Stools are becoming less watery. Stool today was still very watery. Cultures have been negative Stool pathogens identification last week was negative. Would recommend continuing present care, consider use of IV steroids, consider colonoscopy. Would also consider use of Remicade as outlined below. Supportive care. DIARRHEA/COLITIS Diarrhea is a common clinical complaint in patients undergoing treatment with checkpoint-blocking antibodies. Careful attention to the diagnosis and treatment of the earliest symptoms associated with gastrointestinal toxicity can decrease the risk of more severe toxicity. Manifestations Diarrhea/colitis most commonly presents approximately six weeks into treatment, which is later than dermatologic toxicity (figure 1A-B) [ 41]. The differential diagnosis of patients with diarrhea on treatment with a checkpoint inhibitor includes infections with Clostridium difficile or other bacterial/viral pathogens. Diarrhea (increase in stool frequency) is related to but clinically distinct from colitis (abdominal pain, radiographic or endoscopic findings of colonic inflammation). The incidence of diarrhea is much higher in patients receiving cytotoxic T- lymphocyte-associated antigen 4 (CTLA-4)-blocking antibodies compared with inhibition of programmed cell receptor 1 (PD-1). -Diarrhea of any grade was reported in approximately 30 percent of patients treated with ipilimumab for melanoma, but severe (grade 3/4) diarrhea occurred in less than 10 percent of cases [32]. The incidence of diarrhea appears to be dose-dependent. In a phase II dose-finding study, the rate of severe diarrhea was higher at the 10 mg/kg dose than with 3 mg/kg (10 versus 1 percent) [42]. In clinical trials of ipilimumab for melanoma, significant colitis was reported in approximately 5 percent of patients [32,42]. Endoscopic findings have revealed mucosal edema with biopsies demonstrating neutrophilic, lymphocytic, or mixed neutrophilic-lymphocytic infiltrates (picture 2) [43,44]. -Diarrhea/colitis appears to be less frequent with PD-1 blockade than with CTLA- 4 blockade, with grade 3/4 immune-mediated colitis seen in approximately 1 to 2 percent of cases [39,45,46]. Patients who had significant diarrhea/colitis during CTLA-4 blockade have subsequently been treated with PD-1 blockade using nivolumab without developing diarrhea/colitis [47]. However, additional clinical experience is needed to clarify the safety of PD-1 blockade in patients who had significant diarrhea/ colitis from prior treatment with CTLA-4 blockade. Management Patients being treated with a checkpoint inhibitor should be counseled on the importance of maintaining oral hydration if diarrhea develops. If symptoms persist for more than three days or increase and no infectious causes are identified, prompt assessment and use of oral or intravenous corticosteroids are required. -Mild (grade 1) symptoms (fewer than four stools per day over baseline) can be managed symptomatically. Some clinicians feel that the [employer] colitis diet and anti-motility agents (loperamide or oral diphenoxylate atropine sulfate) can be helpful for mild symptoms. Budesonide may be helpful in the early treatment of mild noninfectious diarrhea symptoms that persist but do not escalate after two to three days of dietary modification and anti-motility agents. -Colonoscopy may be helpful if grade 2 symptoms (increase of four to six stools per day over baseline) or greater occur or in situations where the diagnosis is unclear. Treatment should be initiated if colitis is observed. -For patients with severe or life-threatening enterocolitis (grade 3/4, increase of seven or more stools per day over baseline or other complications), treatment with ipilimumab should be permanently discontinued. High doses of corticosteroids should be given. -If patients do not improve with intravenous corticosteroids after approximately three days on IV steroids, infliximab at a dose of 5 mg/kg once every two weeks is typically recommended [48-50]. The dose and schedule of infliximab in this setting is based upon experience treating patients with inflammatory bowel disease [51]. In cases refractory to infliximab, mycophenolate may be needed. (See "Overview of tumor necrosis factor-alpha inhibitors for Crohn disease in adults".) -In very rare cases, colitis can result in bowel perforation, potentially requiring colostomy. Prophylactic treatment with the matrix-release corticosteroid, budesonide is not recommended for the prevention of diarrhea/colitis. This approach was studied as a way to reduce the incidence and/or severity of diarrhea in a double -blind, placebo-controlled phase II study [52]. The rates of diarrhea were similar in both study arms.
--- NOTE | 2018-01-09 12:23 | Progress Note ---
- Date 01/09/18 Subjective: Mr. Billingsley was sitting in his bedside chair, watching television. He states that his diarrhea is still present but slowing down. It's very watery but he denies seeing any blood. He denies epigastric pain or reflux. He denies n/v. He feels weak overall but denies dizziness. He has not felt short of breath or had any cardiac symptoms. He thinks that his leg swelling is improving. Objective Vital signs: Temperature 96.8 F 01/09/18 12:00 Pulse Rate 65 01/09/18 12:00 Respiratory Rate 14 01/09/18 12:00 Blood Pressure 132/66 01/09/18 12:00 Pulse Oximetry 98 01/09/18 12:00 Height/Weight/BMI: Height 1.73 m Weight 95.4 kg Body Mass Index 31.9 - Constitutional Present: no acute distress, well nourished, well developed - Routine HEENT Exam Head: Present: normocephalic Eye: Present: PERRL. Absent: conjunctival icterus, scleral injection ENT: Present: mucous membranes moist - Routine Respiratory Exam Present: CTA bilaterally - Routine Cardiovascular Exam Present: RRR, S1, S2 - Routine Abdominal Exam Present: soft, non distended, non tender. Absent: normoactive bowel sounds ( hypoactive) - Routine Extremities Exam Present: edema (1-2+ BLE). Absent: calf tenderness - Routine Musculoskeletal Exam Musculoskeletal: Present: moving extremities well - Routine Skin Exam Present: intact, dry, warm - Routine Neurological Exam Present: alert, oriented X3, CN II-XII intact, moving all extremities, vision grossly intact, hearing grossly intact, normal speech. 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 Hypertension Hyperlipidemia History of coronary artery disease History of shingles with reactivation BPH GERD Anxiety CT abd/pelvis report: 1. Inflammation around the pancreas and proximal duodenum suggesting duodenitis or pancreatitis. Ulcer disease cannot be excluded. No evidence of perforation. 2. No evidence of small bowel obstruction. 3. Metastatic disease with pulmonary and osseous metastases. 4. Probable gastroenteritis 5. Pubic area soft tissue induration possibly representing cellulitis. Plan Continue high-dose steroids per Dr. Dey, prednisone 80 mg daily. Continue clear liquid diet, IVF. Consult Dr. Guzman. WBC down to 4.6, though would expect it to increase since starting prednisone. Hgb down to 12.1 - nursing staff noticing blood-tinge color with stool. Monitor. DVT Prophylaxis: other (compression stockings) GI Prophylaxis: Protonix Resuscitation Status: Full Code - Physician Narrative Physician: Santiago Jara Narrative: Date: 01/09/18 Time: 1218 I have independently interviewed and examined patient. Patient chart reviewed. Case discussed with my MEAT CUTTER APPRENTICE. Care plan developed with my supervision, agree with above. Patient resting in bedside chair at the time of interview. He reports continued diarrhea although frequency and amount has improved when compared to earlier prior to admission. No reported nausea or vomiting. No reported abdominal discomfort. Case discussed with Ms. Nilam WEINSTEIN with Dr. Garcia and also with general surgeon, Dr. Bailey. Consult placed for general surgery to evaluate patient for EGD to rule out peptic ulcer disease in the context of duodenitis, pancreatitis. Physical exam: AAO x 3, NAD PERRLA, EOMI S1 and S2 heard on auscultation, no murmurs Lungs clear to auscultation bilaterally, no wheezing, no crackles Abdomen soft, nontender, positive bowel sounds No edema bilateral lower extremities. Assessment: Concern for immune mediated gastroenteritis from immunotherapy agents. pancreatitis/duodenitis. Leukocytosis, resolved. Ileus, resolving. Metastatic melanoma, following with oncology. Hyperlipidemia, history of coronary artery disease, hypertension, history of shingles, BPH, GERD, anxiety. Plan: Gen. surgery consulted for upper endoscopy. Continue high-dose prednisone 80 mg daily as recommended by Dr. Dey. Oncology will also evaluate patient at bedside. We will continue clear liquid diet for now. Hospital Course Summary Disclaimer: The visit summary below is not to be considered part of the above Progress Note. Hospital Course: 01/08/18 1. ileus acute POA: official CT results pending . AAS suggest possible SBO. NPO, ice chips, iv pain meds prn. await official result. obviously there is risk of mechanical obstruction. surgical cx not indicated yet 2. metastatic melanoma acute POA: per oncology, ongoing therapy. 3. HTN chronic POA: NPO currently, monitro blood pressure, prn antihypertensive meds as indiated. IV 4. Slightly elevated lipase acute POA: consider pancreatitis. Possible side effect of chemo. repeat lipse in the am. npo for now. 5. lyphedema chronic POA: / to lymph node ressection. 6. DVT ppx: SCD, lovenox Patient admitted with clinical picture suggestive of ileus, likely secondary to Imodium medication which patient has been on for the past few days. Imodium medication will be held. Official CT report awaited and in the meantime patient will be remain nothing by mouth except for ice chips. If needed, Gen. surgery will be consulted. Case discussed with patient's oncologist, Dr. Dey over the phone, who verbalized that patient has diagnosis of immune mediated gastroenteritis from immunotherapy medication opdivo/yervoy being provided for metastatic melanoma and recommendation to treat patient with high-dose steroids starting with prednisone 80 mg by mouth daily. 01/09/18 Continue high-dose steroids per Dr. Dey, prednisone 80 mg daily. Continue clear liquid diet, IVF. Consult Dr. Guzman. WBC down to 4.6, though would expect it to increase since starting prednisone. Hgb down to 12.1 - nursing staff noticing blood-tinge color with stool. Monitor.
[2018-01-09] MEDS ORDERED: INHALER ASSIST DEVICE (Optichamber) MC ONE (12:55)
--- NOTE | 2018-01-10 07:56 | General Surgery Consult Note ---
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 Does not follow with a zipper setter. 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 Surgical History: * Right IJ PowerPort placement - 11/16/[address] Guzman [place] [facility] * Bilateral knee replacement 02/2016 and 03/[address] Edwin Gilmore in [place], [place]. * Excision of basal cell carcinoma from back - 2010. * Colonoscopy - ~2009 in [place], [place]. Reported normal. * Lymph node excision bilateral groin area - 1989 in [place], [place]. * Excision of melanoma from back - 1988 Family History: Family History (Last Updated 11/11/17 @ 13:09 by Ja Maier) Mother , 93 Cancer of breast High blood pressure Father , 78 Heart attack High cholesterol Brother , 69 Cancer of colon Brother , 45 Cancer of lung Sister Lymphoma High blood pressure - Social History Smoking status: Never smoker Substance use type: does not use Alcohol intake: never Alcohol intake frequency: does not drink Household members: none Current occupational status: retired Social history: . Medications Home Medications Medication Instructions Recorded Confirmed Type Ativan (lorazepam) 0.5 mg tablet 0.5 mg PO Q4H PRN tab 11/10/17 01/08/18 History Flomax (tamsulosin) 0.4 mg capsule 0.4 mg PO HS 11/10/17 01/08/18 History Lipitor (atorvastatin) 40 mg tablet 40 mg PO HS 11/10/17 01/08/18 History Norvasc (amlodipine) 5 mg tablet 5 mg PO HS 11/10/17 01/08/18 History Prilosec (Omeprazole) 20 mg 20 mg PO HS 11/10/17 01/08/18 History capsule,delayed release Proscar (finasteride) 5 mg tablet 5 mg PO HS 11/10/17 01/08/18 History oxymetazoline 0.05 % nasal spray 2 spray INTRANASAL BID PRN 11/10/17 01/08/18 History aspirin 81 mg tablet,delayed 81 mg PO HS 11/11/17 01/08/18 History release Acyclovir 1 tab PO DAILY 01/06/18 01/08/18 History Fluticasone HFA [Flovent Hfa 44 1 puff AEROSOL DAILY 01/06/18 01/08/18 History mcg] Loperamide [Imodium] 2 mg PO BID 01/06/18 01/08/18 History Nystatin Oral Liq. [Mycostatin] 5 ml PO TID 01/06/18 01/08/18 History guaiFENesin [Mucinex] 1,200 mg PO Q12H 01/06/18 01/08/18 History predniSONE [Prednisone] 60 mg PO DAILY 01/06/18 01/08/18 History Allergies Allergy/AdvReac Type Severity Reaction Status Date / Time No Known Allergies Allergy Verified 01/08/18 03:04 Review of Systems 10-point ROS: negative except for HPI - General General: Present: other (fatigue) - Musculoskeletal Musculoskeletal: Present: back pain (lower (mild)) - Neurological Neurological: Present: other (slight LENTZ) - Psychiatric Psychiatric: Present: anxiety - Vital Signs Last Vital Signs Temp 95.9 F L 01/10/18 07:19 Pulse 69 01/10/18 07:19 Resp 18 01/10/18 07:19 BP 121/67 01/10/18 07:19 Pulse Ox 100 01/10/18 07:19 - Laboratory Result Diagrams: 01/09/18 04:17 01/10/18 03:38
[2018-01-10] MEDS: PANTOPRAZOLE 40 MG INJECTION IVP SCH (09:17)
[2018-01-10] MEDS: LACTOBACILLUS (15B cfu) CAPSULE PO SCH ×3 (09:17→18:34)
[2018-01-10] MEDS: PredniSONE 20 MG TABLET PO SCH (09:17)
[2018-01-10] MEDS: ENOXAPARIN 40 MG/0.4 ML INJECTION SQ SCH (09:24)
--- NOTE | 2018-01-10 11:37 | Consultation ---
DATE OF CONSULTATION 01/10/2018 CONSULTING PHYSICIAN Harmeet Guzman MD REQUESTING PROVIDER Dr. Jara REASON FOR CONSULTATION Evaluation for esophagogastroduodenoscopy. IMPRESSION 1. Immunotherapy-induced gastroenteritis. 2. Metastatic melanoma. 3. I do not think that the patient has pancreatitis given the lipase that is not three times the upper limit of normal. RECOMMENDATIONS 1. Continue supportive care and steroids for treatment of the immunotherapy- induced colitis. 2. I would like to discuss the case with Dr. Dey after he has evaluated the patient today and see if he thinks than an esophagogastroduodenoscopy is necessary. The patient has been on omeprazole at home which would make ulcer disease less likely. HISTORY OF PRESENT ILLNESS Monico is known to my surgical practice from recent PowerPort placement. On 12/31/2017, he developed diarrhea. He was in the hospital from 2017 to 01/07/2018 for IV fluids given his ongoing diarrhea. He had improved enough to go home but he came back to the hospital on Tuesday (01/08/2018) because he was having ongoing problems and had developed vomiting. In the emergency department, he had a CT scan performed that had shown gastroenteritis but a nonobstructive bowel gas pattern . He was admitted for high-dose steroids for treatment of his ongoing immunotherapy-related to gastroenteritis. He had been started on steroids in the clinic previously. He continues to have diarrhea in the hospital. From midnight to 2:15 a.m. he had five episodes of diarrhea last night. He is not having any abdominal pain. I was consulted to consider esophagogastroduodenoscopy given there was possible duodenitis and ulcer disease could not be excluded based on the CT results. PAST MEDICAL HISTORY, PAST SURGICAL HISTORY, ALLERGIES, MEDICATIONS, SOCIAL HISTORY, FAMILY HISTORY, REVIEW OF SYSTEMS, VITAL SIGNS: , LABORATORY DATA See electronic consultation note. IMAGING CT scan of the abdomen and pelvis from 01/08/2018 was reviewed by report. PHYSICAL EXAMINATION GENERAL: The patient is awake and alert, in no acute distress. HEENT: Sclerae clear. Extraocular muscles intact. NECK: Supple with a midline trachea. No lymphadenopathy or thyromegaly are noted. HEART: Regular rate and rhythm. LUNGS: Clear to auscultation bilaterally. ABDOMEN: Soft, nontender, nondistended. No masses are noted. EXTREMITIES: Mild pitting edema of both lower extremities. He has compression socks in place. NEURO: Cranial nerves II-XII are grossly intact. PSYCHIATRIC: Normal mood and affect. PATIENT EDUCATION The details, risks and benefits of esophagogastroduodenoscopy were discussed with the patient. The discussion included but was not limited to bleeding, perforation requiring repair, aspiration, and complications of anesthesia. Following discussion he was willing to proceed with esophagogastroduodenoscopy if the medical team agreed on its necessity. Will try to discuss this with Dr. Dey later today after he has evaluated the patient. BRENT
[2018-01-10] MEDS: NS with KCL 20 mEq 1,000 ML IV SCH (11:57)
[2018-01-10] MEDS ORDERED: ALBUTEROL/IPRATROPIUM 2.5mg-0.5mg/3ml NEB AEROSOL PRN (12:11)
[2018-01-10] MEDS: BUDESONIDE INH.SOLN 0.5mg/2ml NEB AEROSOL SCH (12:19)
[2018-01-10] MEDS: ALBUTEROL/IPRATROPIUM 2.5mg-0.5mg/3ml NEB AEROSOL SCH ×2 (12:19→21:09)
--- NOTE | 2018-01-10 12:25 | Progress Note ---
- Date 01/10/18 Subjective: Joshua is seen today in follow up. He is up in chair. Reports that Dr. Guzman is going to discuss his case with Dr. Dey to determine if he needs endoscopy. Continues to have loose stool. Reports they are not overtly bloody. No N/V. Remains on Clear liquids at this time. No acute pain. Objective Vital signs: Temperature 95.9 F L 01/10/18 07:19 Pulse Rate 71 01/10/18 11:28 Respiratory Rate 18 01/10/18 11:28 Blood Pressure 126/68 01/10/18 11:28 Pulse Oximetry 98 01/10/18 11:28 Height/Weight/BMI: Height 1.73 m Weight 97 kg Body Mass Index 31.9 - Constitutional Present: no acute distress, well nourished, well developed, cooperative - Routine HEENT Exam Head: Present: normocephalic, atraumatic Eye: Present: EOMI, PERRL ENT: Present: mucous membranes moist - Routine Respiratory Exam Present: CTA bilaterally. Absent: dyspnea, rales, respiratory distress, wheezes - Routine Cardiovascular Exam Present: RRR, S1, S2, no murmur - Routine Abdominal Exam Present: soft, normoactive bowel sounds, distended. 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 Hypertension Hyperlipidemia History of coronary artery disease History of shingles with reactivation BPH GERD Anxiety CT abd/pelvis report: 1. Inflammation around the pancreas and proximal duodenum suggesting duodenitis or pancreatitis. Ulcer disease cannot be excluded. No evidence of perforation. 2. No evidence of small bowel obstruction. 3. Metastatic disease with pulmonary and osseous metastases. 4. Probable gastroenteritis 5. Pubic area soft tissue induration possibly representing cellulitis. Plan 01/10/18 Ongoing stool. Repeat CBC now for stability. Await decision of EGD/CE prior to advancing diet. Surgery to follow up later today- notes reviewed. Continue clear liquids. Home meds reviewed- resume prostate specific meds to avoid urinary retention- BP should support w/o difficulty. Continue IV PPI. Check H.Pylori IgG given area of inflammation on CT. Potassium remains low- change IVF to replace given gastric inflammation. Surgery and oncology following. Appreciate assistance. Resume Acyclovir? DVT Prophylaxis: SCD's, MURIEL Hose, Lovenox GI Prophylaxis: Protonix - Physician Narrative Physician: Santiago Jara MD Narrative: Date: 01/10/18 Time: 1222 I have independently interviewed and examined patient. Patient chart reviewed. Case discussed with my CIRCUIT MANAGER. Care plan developed with my supervision, agree with above. Case discussed with patient's oncologist, Dr. Dey and general surgeon, Dr. Guzman. Patient's presenting symptoms highly suspicious for immune mediated gastroenteritis as informed to me by Dr. Dey and decision made to hold off on endoscopy procedure at this time. Patient agreeable with plan. No reported abdominal pain, no abdominal discomfort, no nausea, no vomiting. Tolerating clear liquid diets. Patient continues to have loose stools although symptomatically improved when compared to time of admission. Physical exam: AAO x 3, NAD PERRLA, EOMI S1 and S2 heard on auscultation, no murmurs Lungs clear to auscultation bilaterally, no wheezing, no crackles Abdomen soft, nontender, positive bowel sounds No edema bilateral lower extremities. Assessment: Immune mediated gastroenteritis involving pancreatitis and duodenitis(serositis?). Ileus, resolved. Leukocytosis, resolved. Hypokalemia, will replace potassium. Hypertension, hyperlipidemia. History of metastatic melanoma, recently receiving immunotherapy with Opdifacundo Yervoy. History of coronary artery disease, BPH, GERD, anxiety. Plan: Diet will be advanced to full liquids this evening and if tolerated, plan to provide and cardiac diet from tomorrow morning. Symptomatically, patient states feeling better. Dr. Dey has switched Protonix 80 mg to IV Solu-Medrol 125 mg every 6 hours. Hospital Course Summary Disclaimer: The visit summary below is not to be considered part of the above Progress Note. Hospital Course: 01/08/18 1. ileus acute POA: official CT results pending . AAS suggest possible SBO. NPO, ice chips, iv pain meds prn. await official result. obviously there is risk of mechanical obstruction. surgical cx not indicated yet 2. metastatic melanoma acute POA: per oncology, ongoing therapy. 3. HTN chronic POA: NPO currently, monitro blood pressure, prn antihypertensive meds as indiated. IV 4. Slightly elevated lipase acute POA: consider pancreatitis. Possible side effect of chemo. repeat lipse in the am. npo for now. 5. lyphedema chronic POA: / to lymph node ressection. 6. DVT ppx: SCD, lovenox Patient admitted with clinical picture suggestive of ileus, likely secondary to Imodium medication which patient has been on for the past few days. Imodium medication will be held. Official CT report awaited and in the meantime patient will be remain nothing by mouth except for ice chips. If needed, Gen. surgery will be consulted. Case discussed with patient's oncologist, Dr. Dey over the phone, who verbalized that patient has diagnosis of immune mediated gastroenteritis from immunotherapy medication opdivo/yervoy being provided for metastatic melanoma and recommendation to treat patient with high-dose steroids starting with prednisone 80 mg by mouth daily. 01/09/18 Continue high-dose steroids per Dr. Dey, prednisone 80 mg daily. Continue clear liquid diet, IVF. Consult Dr. Guzman. WBC down to 4.6, though would expect it to increase since starting prednisone. Hgb down to 12.1 - nursing staff noticing blood-tinge color with stool. Monitor. 01/10/18 Ongoing stool. Repeat CBC now for stability. Await decision of EGD/CE prior to advancing diet. Surgery to follow up later today- notes reviewed. Continue clear liquids. Home meds reviewed- resume prostate specific meds to avoid urinary retention- BP should support w/o difficulty. Continue IV PPI. Check H.Pylori IgG given area of inflammation on CT. Potassium remains low- change IVF to replace given gastric inflammation. Surgery and oncology following. Appreciate assistance. Resume Acyclovir?
[2018-01-10] MEDS: POTASSIUM CHLORIDE INJ 40 MEQ in NS 1,000 ML IV SCH (13:43)
--- NOTE | 2018-01-10 17:23 | Progress Note ---
Oncology Subjective The patient still having loose stool/up to 6 bowel movements per day. He has no nausea or vomiting. However his appetite is reduced. He has no fever. No abdominal pain. No blood in his stool. ROS General: No fever. No weight loss. Respiratory: No shortness of breath no cough. GI: Still having diarrhea. No nausea or vomiting. Cardiovascular: No chest pain. : No urinary symptoms. HYDROGEN POWER PLANT MANAGER: No history of seizure. No headache. No blurring of vision. Exam Vital signs: Temperature 97.9 F 01/10/18 15:44 Pulse Rate 71 01/10/18 15:44 Respiratory Rate 18 01/10/18 15:44 Blood Pressure 123/69 01/10/18 15:44 Pulse Oximetry 98 01/10/18 15:44 - Constitutional no acute distress - Routine HEENT Exam Comments: No oral thrush. No mucositis. - Routine Respiratory Exam Absent: respiratory distress, rhonchi, wheezes, crackles - Routine Cardiovascular Exam Present: RRR, no murmur. Absent: JVD - Routine Abdominal Exam Present: soft, normoactive bowel sounds, non distended. Absent: tenderness, rebound Oncology Results - Labs CBC & Chem 7: 01/10/18 12:38 01/10/18 03:38 Labs: Short CBC 01/10/18 Range/Units 12:38 WBC 8.5 D (4.5-11.0) T/MM3 Hgb 13.5 D (13.5-17.5) GM/DL Hct 39.1 L (41-53) % Plt Count 224 (130-400) T/MM3 [facility] 01/10/18 03:38 Sodium 143 Potassium 3.4 L Chloride 112 H Carbon Dioxide 20 L BUN 15.0 Creatinine 0.9 Glucose 99 Calcium 8.9 Assessment and Plan Assessment and Plan: A/P; 1. 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 Chemotherapy is on hold due to the immune mediated toxicity. 2. Immune mediated diarrhea on Prednisone for 4 days. Plan: 1. Continue hydration. 2. Switch from prednisone to Solu-Medrol 125 mg every 6 hours plus PPI. 3. If diarrhea persist will consider Remicade. 4. Lomotil as needed for diarrhea. 5. I discussed with Dr. McConeghey to hold on EGD for now. - Time Spent With Patient Total time spent is greater than 50% in coordination of care (as documented) at patient's floor/unit and/or counseling patient: 25 - 35 minutes
[2018-01-10] MEDS: NYSTATIN 500,000 units/5 ml ORAL LIQUID PO SCH ×2 (18:34→21:19)
[2018-01-10] MEDS: DIPHENOXYLATE /ATROPINE TABLET PO PRN (18:42)
[2018-01-10] MEDS: METHYLPREDNISOLONE SOD SUCC 125mg/2ml INJECTION IVP SCH (21:19)
[2018-01-10] MEDS: FINASTERIDE 5 MG TABLET PO SCH (21:19)
[2018-01-10] MEDS: SALINE FLUSH 10ml SYRINGE IVF PRN (21:19)
[2018-01-10] MEDS: TAMSULOSIN 0.4 MG CAPSULE PO SCH (21:19)
[2018-01-11] MEDS: POTASSIUM CHLORIDE INJ 40 MEQ in NS 1,000 ML IV SCH ×2 (02:42→17:01)
[2018-01-11] MEDS: METHYLPREDNISOLONE SOD SUCC 125mg/2ml INJECTION IVP SCH ×4 (02:43→20:11)
[2018-01-11] MEDS: SALINE FLUSH 10ml SYRINGE IVF PRN (02:43)
[2018-01-11] MEDS: DIPHENOXYLATE /ATROPINE TABLET PO PRN (05:07)
[2018-01-11] MEDS: LACTOBACILLUS (15B cfu) CAPSULE PO SCH ×3 (09:46→16:37)
[2018-01-11] MEDS: NYSTATIN 500,000 units/5 ml ORAL LIQUID PO SCH ×3 (09:46→20:11)
[2018-01-11] MEDS: PANTOPRAZOLE 40 MG INJECTION IVP SCH (09:47)
[2018-01-11] MEDS: ENOXAPARIN 40 MG/0.4 ML INJECTION SQ SCH (09:47)
[2018-01-11] MEDS: ALBUTEROL/IPRATROPIUM 2.5mg-0.5mg/3ml NEB AEROSOL SCH ×2 (10:10→19:26)
[2018-01-11] MEDS: BUDESONIDE INH.SOLN 0.5mg/2ml NEB AEROSOL SCH ×2 (10:10→19:26)
--- NOTE | 2018-01-11 15:00 | Progress Note ---
- Date 01/11/18 Subjective: Mr Billingsley is seen this afternoon while resting in his room with family at his side. He states that overall he is feeling good and is excited to be able to advance his diet. He denies having any pain at time of examination. He feels that his breathing is good on room air. He denies having any nausea. Objective Vital signs: Temperature 96.6 F L 01/11/18 13:00 Pulse Rate 90 01/11/18 13:00 Respiratory Rate 18 01/11/18 13:00 Blood Pressure 126/62 01/11/18 13:00 Pulse Oximetry 98 01/11/18 13:00 Height/Weight/BMI: Height 1.73 m Weight 97.7 kg Body Mass Index 31.9 - Constitutional Present: no acute distress, well nourished, well developed - Routine HEENT Exam Eye: Present: EOMI ENT: Present: mucous membranes moist, dentition normal - Routine Respiratory Exam Present: CTA bilaterally. Absent: wheezes - Routine Cardiovascular Exam Present: RRR. Absent: murmur - Routine Abdominal Exam Present: soft, normoactive bowel sounds, non distended. 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 Hypertension Hyperlipidemia History of coronary artery disease History of shingles with reactivation BPH GERD Anxiety CT abd/pelvis report: 1. Inflammation around the pancreas and proximal duodenum suggesting duodenitis or pancreatitis. Ulcer disease cannot be excluded. No evidence of perforation. 2. No evidence of small bowel obstruction. 3. Metastatic disease with pulmonary and osseous metastases. 4. Probable gastroenteritis 5. Pubic area soft tissue induration possibly representing cellulitis. Plan Patient able to advance diet today. Continues on IV fluid with potassium supplementation for hydration. Currently, remains on Solu-Medrol 125 milligram IV every 6 hours. Can likely change to oral prednisone tomorrow. Continue PPI, H. pylori pending Appreciate consultations by Dr. Guzman, and Dr. Dey Re-evaluate tomorrow, hopeful for discharge in the near future DVT Prophylaxis: SCD's, MURIEL Hose, Lovenox GI Prophylaxis: Protonix Resuscitation Status: Full Code - Physician Narrative Physician: Santiago Jara MD Narrative: Date: 01/11/18 Time: 1440 I have independently interviewed and examined patient. Patient chart reviewed. Case discussed with my MARKETING PERFORMANCE ANALYST. Care plan developed with my supervision, agree with above. Case discussed with patient's oncologist, Dr. Dey. Recommendation to continue progressing diet and if patient tolerating regular cardiac diet by tomorrow, stop IV Solu-Medrol and switched to oral prednisone [address] Dey recommended discharge home on oral prednisone 40 mg daily and thereafter will be followed up in oncology office for further taper of steroids. Patient resting comfortably in bedside chair at the time of interview. No reported abdominal pain, no abdominal discomfort, no nausea, no vomiting. Tolerating full liquids. Patient continues to have loose stools although symptomatically improved when compared to time of admission. Physical exam: AAO x 3, NAD PERRLA, EOMI S1 and S2 heard on auscultation, no murmurs Lungs clear to auscultation bilaterally, no wheezing, no crackles Abdomen soft, nontender, positive bowel sounds Nonpitting edema bilateral lower extremities. Assessment: Immune mediated gastroenteritis involving pancreatitis and duodenitis(serositis?). Ileus, resolved. Leukocytosis, resolved. Hypokalemia, will replace potassium. Hypertension, hyperlipidemia. History of metastatic melanoma, recently receiving immunotherapy with Opdivo, Yervoy. History of coronary artery disease, BPH, GERD, anxiety. Plan: Diet will be advanced to cardiac. If patient tolerating diet tomorrow morning, plan to discontinue IV Solu-Medrol and patient to be started on oral prednisone 40 mg daily. If symptoms resolving and patient tolerating diet, tentative plan for discharge home on oral prednisone 40 mg daily tomorrow. Hospital Course Summary Disclaimer: The visit summary below is not to be considered part of the above Progress Note. Hospital Course: 01/08/18 1. ileus acute POA: official CT results pending . AAS suggest possible SBO. NPO, ice chips, iv pain meds prn. await official result. obviously there is risk of mechanical obstruction. surgical cx not indicated yet 2. metastatic melanoma acute POA: per oncology, ongoing therapy. 3. HTN chronic POA: NPO currently, monitro blood pressure, prn antihypertensive meds as indiated. IV 4. Slightly elevated lipase acute POA: consider pancreatitis. Possible side effect of chemo. repeat lipse in the am. npo for now. 5. lyphedema chronic POA: 2/2 to lymph node ressection. 6. DVT ppx: SCD, lovenox Patient admitted with clinical picture suggestive of ileus, likely secondary to Imodium medication which patient has been on for the past few days. Imodium medication will be held. Official CT report awaited and in the meantime patient will be remain nothing by mouth except for ice chips. If needed, Gen. surgery will be consulted. Case discussed with patient's oncologist, Dr. Dey over the phone, who verbalized that patient has diagnosis of immune mediated gastroenteritis from immunotherapy medication opdivo/yervoy being provided for metastatic melanoma and recommendation to treat patient with high-dose steroids starting with prednisone 80 mg by mouth daily. 01/09/18 Continue high-dose steroids per Dr. Dey, prednisone 80 mg daily. Continue clear liquid diet, IVF. Consult Dr. Guzman. WBC down to 4.6, though would expect it to increase since starting prednisone. Hgb down to 12.1 - nursing staff noticing blood-tinge color with stool. Monitor. 01/10/18 Ongoing stool. Repeat CBC now for stability. Await decision of EGD/CE prior to advancing diet. Surgery to follow up later today- notes reviewed. Continue clear liquids. Home meds reviewed- resume prostate specific meds to avoid urinary retention- BP should support w/o difficulty. Continue IV PPI. Check H.Pylori IgG given area of inflammation on CT. Potassium remains low- change IVF to replace given gastric inflammation. Surgery and oncology following. Appreciate assistance. Resume Acyclovir? 01/11/18 Patient able to advance diet today. Continues on IV fluid with potassium supplementation for hydration. Currently, remains on Solu-Medrol 125 milligram IV every 6 hours. Can likely change to oral prednisone tomorrow. Continue PPI, H. pylori pending Appreciate consultations by Dr. Guzman, and Dr. Dey Re-evaluate tomorrow, hopeful for discharge in the near future
--- NOTE | 2018-01-11 16:45 | Progress Note ---
Oncology Subjective He has less bowel movements. He slept well last night, went for 7 hours without BM. He has only 3 bowel movements today. All in all he is feeling better since the start of the IV steroids and Lomotil. ROS General: No fever Respiratory: No cough no shortness of breath. Cardiovascular: No chest pain. GI: No nausea or vomiting. Diarrhea improving. [employer] no history of stroke. Exam Vital signs: Temperature 97.3 F 01/11/18 15:50 Pulse Rate 73 01/11/18 15:50 Respiratory Rate 16 01/11/18 15:50 Blood Pressure 134/66 01/11/18 15:50 Pulse Oximetry 98 01/11/18 15:50 - Constitutional no acute distress, well nourished, well developed, cooperative - Routine HEENT Exam Comments: No oral thrush. No mucositis. - Routine Respiratory Exam Absent: rhonchi, wheezes, crackles - Routine Cardiovascular Exam Present: RRR, no murmur - Routine Abdominal Exam Present: soft, normoactive bowel sounds, non distended - Routine Extremities Exam Present: no edema - Routine Skin Exam Absent: petechiae, rash - Routine Neurological Exam Present: oriented X3, normal reflexes. Absent: sensory deficit, motor deficit Oncology Results - Labs CBC & Chem 7: 01/11/18 04:23 01/11/18 04:23 Labs: Short CBC 01/11/18 Range/Units 04:23 WBC 6.5 (4.5-11.0) T/MM3 Hgb 12.1 L (13.5-17.5) GM/DL Hct 35.1 L (41-53) % Plt Count 207 (130-400) T/MM3 [facility] 01/11/18 04:23 Sodium 140 Potassium 3.5 L Chloride 109 H Carbon Dioxide 19 L BUN 12.0 Creatinine 0.8 Glucose 130 H Calcium 8.7 Liver Function 01/11/18 Range/Units 04:23 Total Bilirubin 0.40 (0.20-1.30) MG/DL AST 16 L (17-59) U/L ALT 17 (1-50) U/L Alkaline Phosphatase 66 (38-126) U/L Albumin 3.5 (3.5-5.0) g/dL Assessment and Plan Assessment and Plan: A/P; 1. 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 immunotherapy is on hold due to the immune mediated toxicity. 2. 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 Diarrhea is resolving. Plan: 1. Continue hydration. 2. Solu-Medrol 125 mg every 6 hours plus PPI. If diarrhea continues to improve by tomorrow may go home on prednisone 40 mg p.o. daily and will see the patient next week. Also he may continue Lomotil. 3. I will see the patient next week for reevaluation and may taper off the prednisone. 4. Yervoy will be discontinued from the regimen. Treatment will be with single agent Opdivo until disease progression or unacceptable toxicity. In case of persistent diarrhea while on Opdivo the patient may benefit from BRAF inhibitors. - Time Spent With Patient Total time spent is greater than 50% in coordination of care (as documented) at patient's floor/unit and/or counseling patient: 25 - 35 minutes
[2018-01-11 18:57] VITALS: BMI 32.7
[2018-01-11] MEDS: FINASTERIDE 5 MG TABLET PO SCH (20:11)
[2018-01-11] MEDS: TAMSULOSIN 0.4 MG CAPSULE PO SCH (20:11)
[2018-01-12] MEDS: METHYLPREDNISOLONE SOD SUCC 125mg/2ml INJECTION IVP SCH ×2 (03:26→08:37)
[2018-01-12 03:31] VITALS: TEMP 98.2
[2018-01-12] MEDS: POTASSIUM CHLORIDE INJ 40 MEQ in NS 1,000 ML IV SCH (07:29)
[2018-01-12 07:33] VITALS: BP 128/66; PULSE 76
[2018-01-12] MEDS: BUDESONIDE INH.SOLN 0.5mg/2ml NEB AEROSOL SCH (08:19)
[2018-01-12] MEDS: ALBUTEROL/IPRATROPIUM 2.5mg-0.5mg/3ml NEB AEROSOL SCH (08:19)
[2018-01-12 08:25] VITALS: RESP 24; O2SAT 96
[2018-01-12] MEDS: ENOXAPARIN 40 MG/0.4 ML INJECTION SQ SCH (08:37)
[2018-01-12] MEDS: PANTOPRAZOLE 40 MG INJECTION IVP SCH (08:37)
[2018-01-12] MEDS: LACTOBACILLUS (15B cfu) CAPSULE PO SCH (08:37)
[2018-01-12] MEDS: SALINE FLUSH 10ml SYRINGE IVF PRN ×2 (08:37→09:34)
[2018-01-12] MEDS: NYSTATIN 500,000 units/5 ml ORAL LIQUID PO SCH (08:37)
--- NOTE | 2018-01-12 09:56 | Discharge Summary ---
Discharge Information Date of admission: 01/08/18 05:29 Anticipated date of discharge: 01/12/18 Attending Physician: Dunia Bolton MD Primary care physician: Nikolas Lance MD Consults: Consulting Provider: Harmeet Guzman Consulting Provider: Louie Garcia Immune mediated gastroenteritis from immunotherapy medication Opdivo/Yervoy Pancreatitis/duodenitis Ileus Hypokalemia, POA Leukocytosis, POA - resolved Metastatic melanoma, currently on immunotherapy with Opdivo, Yervoy status post 2 completed cycles of 4 total scheduled. Hypertension Hyperlipidemia History of coronary artery disease History of shingles with reactivation BPH GERD Anxiety - Laboratory Labs: 01/12/18 04:19 01/12/18 04:19 Laboratory Tests 01/08/18 01/10/18 17:47 12:38 Stool Occult Blood Negative H. pylori IgG Antibody 0.20 - Radiology Radiology: Date of Exam: 01/08/18 PROCEDURE: PA view of the chest with supine and upright AP views of the abdomen FINDINGS: The lungs are clear. There is no abnormal airspace opacity, pleural effusion or pneumothorax identified. The heart size, pulmonary vasculature and mediastinum are within normal limits. There is no free air on the upright view. The bowel gas pattern is nonobstructive with scattered small bowel air-fluid levels. No abnormally dilated small or large bowel appreciated. Lytic osseous metastatic disease is noted in the pelvis, particularly the left iliac crest. IMPRESSION: 1. No acute cardiopulmonary abnormality. 2. Probable gastroenteritis. = = = = = = = = = = = = = = = = = = = = = = = = = = = = = = = = = = = = = = = = = = = = = = = = = = = = = = = = = = = Date of Exam: 01/08/18 PROCEDURE: CT abdomen pelvis w con: Findings: The lung bases show a 1.2 cm nodule in the lingula and a subpleural 1.3 cm nodule in the left lower lobe. There is also a mildly irregular cervical subcentimeter nodule in the right lower lobe. The liver appears normal. The gallbladder is normal. The spleen shows a tiny low-attenuation focus, too small to characterize. There is inflammatory stranding surrounding the pancreatic head and second and third portions of the duodenum with enlarged peripancreatic and mesenteric nodes. The adrenal glands are normal. Right renal cyst. Kidneys are otherwise normal. Central mesenteric edema with trace fluid. Bladder is normal. No evidence of a bowel obstruction. Fluid throughout the small and large bowel. The appendix is normal. No abnormally dilated small bowel appreciated. No evidence of bowel obstruction. Bone windows show osseous metastases, better seen on the prior pelvic MRI. These are predominantly lytic. No acute pathologic fracture appreciated. Significant soft tissue induration overlying the base of the anus and infrapubic soft tissues. Impression: 1. Inflammation around the pancreas and proximal duodenum suggesting duodenitis or pancreatitis. Ulcer disease cannot be excluded. No evidence of perforation. 2. No evidence of small bowel obstruction. 3. Metastatic disease with pulmonary and osseous metastases. 4. Probable gastroenteritis 5. Pubic area soft tissue induration possibly representing cellulitis. History of Present Illness HPI: This is a 67 y/o male who is currently being treated for metastatic recurrent melanoma. The patient was recently hospitalized for nausea/vomiting/diarrhea. He was discharged yesterday afternoon. Around 7pm the patient had recurrence of his n/v/d. He presented back to the ED and ultimately had a CT of his abdomen / pelvis. Note that the acute abdomen series prior to the CT suggested small bowel obstruction. At this time the patient is to be admitted for management of his ongoing GI illness. Objective Vital signs: Temperature 98.2 F 01/12/18 03:30 Pulse Rate 76 01/12/18 07:00 Respiratory Rate 24 01/12/18 08:20 Blood Pressure 128/66 01/12/18 07:00 Pulse Oximetry 96 01/12/18 08:20 Height/Weight/BMI: Height 1.73 m Weight 96.3 kg Body Mass Index 32.7 - Constitutional Present: no acute distress, well nourished, well developed - Routine HEENT Exam Head: Present: normocephalic Eye: Present: PERRL. Absent: conjunctival icterus, scleral injection ENT: Present: mucous membranes moist - Routine Respiratory Exam Present: CTA bilaterally - Routine Cardiovascular Exam Present: RRR, S1, S2 - Routine Abdominal Exam Present: soft, normoactive bowel sounds, non distended, non tender - Routine Extremities Exam Present: edema (BLE, chronic) - Routine Back/Spine/Pelvis Exam Back/Spine: Present: full ROM - Routine Musculoskeletal Exam Musculoskeletal: Present: moving extremities well - Routine Skin Exam Present: intact, dry, warm - Routine Neurological Exam Present: alert, oriented X3, CN II-XII intact, moving all extremities, vision grossly intact, hearing grossly intact, normal speech. Absent: sensory deficit , motor deficit, altered mental status, facial asymmetry - Routine Psychiatric Exam Present: normal affect, normal thought process, cooperative Hospital Course This is a general summary of the patient's hospital course. For more details refer to the complete medical record. Hospital course: 01/08/18 Admitted with ileus. Made NPO, IVF provided. IV PPI. Lipase slightly elevated on admission. Dr. Dey was consulted and diagnosed the patient with immune mediated gastroenteritis from immunotherapy medication Opdivo/Yervoy being provided for metastatic melanoma and recommendation to treat patient with high-dose steroids starting with prednisone 80 mg by mouth daily. 01/09/18 Continue clear liquid diet, IVF. WBC down to 4.6. Hgb 12.1. Consulted Dr. Guzman, who discussed the option of EGD with Dr. Dey but ultimately decided not to proceed. 01/10/18 Continue clear liquids. Still having frequent loose stools and steroids were increased to Solu-Medrol 125 mg QID. Home meds resumed for prostate and BP. Potassium low- change IVF to replace given gastric inflammation. 01/11/18 Advanced diet. Overall improving on IV steroids. Continues on IV fluid with potassium supplementation for hydration. Continue PPI, H. pylori was negative. 01/12/18 Tolerating regular diet. Stools have slowed down. Labs and vitals stable. Received KDur x1 for K of 3.5. Able to discharge home. Per Dr. Dey, continue Prednisone 40 mg daily and he will taper. Also recommends Lomotil PRN. F/U with Dr. Dey next week. Recheck CBC, BMP in 1 week as well. Time spent with patient: discharge greater than 30 minutes Resuscitation Status: Full Code Discharge Plan - Discharge Disposition Discharge Date: 01/12/18 Disposition: 01 Discharged Home, Self-Care *Condition: Improved Reason For Visit (Visit label in EMR): immune mediated gastroenteritis - Discharge Medications *Discharge Medications: New Diphenoxylate/Atropine [Lomotil] 1 tab PO QID PRN #12 tab PRN Reason: Diarrhea Acidoph/L.bulg/Bif.b/S.thermop [Bacid Caplet] 2 cap PO TIDWM tab Continue Nystatin Oral Liq. [Mycostatin] 5 ml PO TID guaiFENesin [Mucinex] 1,200 mg PO Q12H Fluticasone HFA [Flovent Hfa 44 mcg] 1 puff AEROSOL DAILY Acyclovir 1 tab PO DAILY Norvasc (amlodipine) 5 mg tablet 5 mg PO HS Ativan (lorazepam) 0.5 mg tablet 0.5 mg PO Q4H PRN tab PRN Reason: Anxiety Lipitor (atorvastatin) 40 mg tablet 40 mg PO HS Proscar (finasteride) 5 mg tablet 5 mg PO HS Prilosec (Omeprazole) 20 mg capsule,delayed release 20 mg PO HS Flomax (tamsulosin) 0.4 mg capsule 0.4 mg PO HS aspirin 81 mg tablet,delayed release 81 mg PO HS oxymetazoline 0.05 % nasal spray 2 spray INTRANASAL BID PRN PRN Reason: Prn Orders Changed predniSONE [Prednisone] 40 mg PO DAILY #20 Discontinued Loperamide [Imodium] 2 mg PO BID - Discharge Packet/Instructions *Diet: Heart healthy; low fat; 2 gram low-sodium. *Activity: No restrictions. *Pain Management/Treatment: Tylenol if needed. *Wound Care: N/A Additional Instructions: Dr. Dey wants for you to start taking Prednisone 40 mg daily and he will give you further instructions on how to taper it. If you need an additional Rx for Prednisone you may either call the hospitalist at [facility] or Dr. Dey's office. You may also try taking Lomitil (sparingly) for diarrhea. You should have labs rechecked before you see Dr. Dey. Arrive an hour before your appointment to have your blood drawn (CBC, CMP, mg) *Expected Signs/Symptoms: You should continue to feel better. *Notify Physician if: Fever, abdominal pain, recurrent diarrhea, constipation, vomiting, dehydration, dizziness, shortness of breath, or any new concerns. *During Business Hours Contact: Dr. Dey's office. *After Business Hours Contact: The on-call provider for Dr. Dey or if your situation is dire please call 911. *Pending Lab/Results: Follow up w/your PCP - Referrals/Follow Up - Patient Handouts Patient Handouts: Bowel Obstruction (GEN) - Dismissal Complete Discharge Instructions are:: Complete Physician Narrative - Narrative Attestation Narrative: Date: 01/12/18 Time: 1400 I have independently evaluated and examined this patient. I reviewed the chart, the patient's history, and the SHOR[employer]IFTER/PA's documented findings as above. We discussed and formulated the assessment and plan as above with additions as below: Mr. Billingsley reported feeling well this morning when seen and that he was tolerating a regular diet without difficulty. He was depressed and anxious to discharge home. Respirations nonlabored, good airflow, breath sounds clear. Abdomen soft, nontender, bowel sounds present. Doing well; stable for discharge at this time on oral steroids with outpatient follow-up with Dr. Dey as indicated.
== END 2018-01-12 11:00 | disposition home or self-care (01) | DRG 394 ==
LOC: ED 02:48 → EDHOLD 05:29 → SUATTDRO 05:29 → MED 05:40
PROVIDERS: ADMIT Emergency Medicine; ATTEND Internal Medicine